=== PATIENT | female | born 1980 | race Caucasian/White ===

== ENCOUNTER 2018-12-21 17:13 | Inpatient (IN) | payer BC ==
[~2018-12-21] VITALS: Ht 144.8 cm; Wt 83.5 kg
[2018-12-21] MEDS ORDERED: METF-414 MT (17:19)
[2018-12-21] MEDS ORDERED: SODIUM CHLORIDE 0.9% 1,000 ML IV ONE (17:52)
[2018-12-21] MEDS ORDERED: KETOROLAC 30MG/ML VIAL IV STA (17:52)
[2018-12-21 18:15] LABS: CLARITY URINE CLEAR (CLEAR); COLOR URINE YELLOW (YELLOW); KETONES URINE NEGATIVE (NEGATIVE); LEUKOCYTE ESTERASE URINE NEGATIVE (NEGATIVE); NITRITE URINE NEGATIVE (NEGATIVE); OCCULT BLOOD URINE NEGATIVE (NEGATIVE); PROTEIN URINE NEGATIVE (NEGATIVE); SPECIFIC GRAVITY URINE 1.024 (1.005-1.030); UROBILINOGEN URINE 0.2 E.U./dL (0.2-1.0)
[2018-12-21 18:30] LABS: CHLORIDE 103 mEq/L (98-107)
[2018-12-21 18:31] LABS: BASOPHILS % 0.5 % (0.0-2.0); EOSINOPHILS % 0.9 % (0.0-5.0); HEMATOCRIT. 38.4 % (36.0-48.0); HEMOGLOBIN. 12.7 g/dL (12.0-16.0); LYMPHOCYTES % 21.4 % (20.0-50.0); MEAN CORPUSCULAR HEMOGLOBIN 25.4 pg (28.0-32.0); MEAN CORPUSCULAR VOLUME 77.2 fL (81.0-99.0); MEAN PLATELET VOLUME 8.1 fl (7.4-10.4); NEUTROPHILS % 71.2 % (40.0-76.0); PLATELET 324 x1000/uL (130-400); RED BLOOD CELL COUNT 4.98 mill/uL (4.2-5.4); RED CELL DISTRIBUTION WIDTH 14.7 % (11.6-14.6)
[2018-12-21 18:32] LABS: INR 0.9; PROTHROMBIN TIME 9.8 sec (9.6-11.0)
[2018-12-21] MEDS ORDERED: ASPIRIN 81MG TABLET PO ONE (19:30)
[2018-12-21 21:33] VITALS: BP 155/86
[2018-12-21] MEDS ORDERED: CLONIDINE 0.1MG TABLET PO PRN ×2 (22:15→22:30)
[2018-12-21] MEDS ORDERED: ONDANSETRON HCL 4MG/2ML INJ IV PRN ×2 (22:15→22:30)
[2018-12-21] MEDS ORDERED: MAGNESIUM/ALUMINUM HYDROXIDE/SIMETHICONE 30ML UDC PO PRN ×2 (22:15→22:30)
[2018-12-21] MEDS ORDERED: LORAZEPAM 2MG/ML CPJ IV PRN ×2 (22:15→22:30)
[2018-12-21] MEDS ORDERED: ENOXAPARIN 40MG/0.4ML SYR SUBCUT SCH ×2 (22:15→22:30)
[2018-12-21] MEDS ORDERED: HYDROCODONE/ACETAMINOPHEN 5/325MG TABLET PO PRN ×2 (22:15→22:30)
[2018-12-21] MEDS ORDERED: ACETAMINOPHEN 325MG TABLET PO PRN (22:30)
[2018-12-21] MEDS ORDERED: DEXTROSE 50% WATER 50ML SYRINGE IV PRN (23:00)
[2018-12-21] MEDS: LABETALOL HCL 200MG TABLET PO SCH (23:29)
[2018-12-21] MEDS: BLOOD SUGAR DIAGNOSTIC STRIP TEST SCH (23:30)
[2018-12-21] MEDS: THIAMINE HCL 100MG TABLET PO SCH (23:30)
[2018-12-21] MEDS: INSULIN LISPRO 100 UNITS/ML SUBCUT SCH (23:38)
[2018-12-22] VITALS: BP 146/87
[2018-12-22 04:00] VITALS: BP 130/73
[2018-12-22 07:44] LABS: CREATINE KINASE MB FRACTION 1.4 ng/mL (0.5-3.6)
[2018-12-22 07:45] LABS: METHADONE URINE SCREEN NEGATIVE (NEGATIVE)
[2018-12-22 07:46] LABS: *AMPHETAMINES SCREEN URINE NEGATIVE (NEGATIVE); *BARBITURATES SCREEN URINE NEGATIVE (NEGATIVE); *BENZODIAZEPINES SCREEN URINE NEGATIVE (NEGATIVE); *COCAINE SCREEN URINE NEGATIVE (NEGATIVE); CANNABINOID URINE SCREEN NEGATIVE (NEGATIVE); OPIATES URINE SCREEN NEGATIVE (NEGATIVE); PHENCYCLIDINE URINE SCREEN NEGATIVE (NEGATIVE)
[2018-12-22 08:00] VITALS: BP 150/84
[2018-12-22] MEDS ORDERED: FERROUS SULFATE 325MG TABLET PO SCH (09:00)
[2018-12-22] MEDS ORDERED: ASPIRIN 81MG EC TABLET PO SCH ×2 (09:00)
[2018-12-22] MEDS: LABETALOL HCL 200MG TABLET PO SCH (09:12)
[2018-12-22] MEDS: THIAMINE HCL 100MG TABLET PO SCH (09:13)
[2018-12-22] MEDS: INSULIN LISPRO 100 UNITS/ML SUBCUT SCH ×2 (09:18→13:27)
[2018-12-22] MEDS ORDERED: INSULIN GLARGINE UD 100 UNITS/ML SYR SUBCUT SCH (11:00)
[2018-12-22 12:00] VITALS: BP 139/81
[2018-12-22] MEDS: BLOOD SUGAR DIAGNOSTIC STRIP TEST SCH (12:40)
[2018-12-22] MEDS ORDERED: GLIM2TAB2 MT (13:40)
[2018-12-22 15:50] VITALS: BP 139/81
[2018-12-22 16:03] LABS: CREATINE KINASE MB FRACTION 1.1 ng/mL (0.5-3.6)
== END 2018-12-22 16:34 | disposition home or self-care (01) | DRG 392 ==
LOC: ER 17:13 → 7WST 19:30 → EDBEDREQTM 19:38 → EDBEDREQ 19:38 → ENRESERV 20:51
PROVIDERS: ADMIT Internal Medicine Nephrology; ATTEND Internal Medicine Nephrology
DX: K21.9 Gastro-esophageal reflux disease without esophagitis (principal); E11.9 Type 2 diabetes mellitus without complications; I10 Essential (primary) hypertension; E66.9 Obesity, unspecified; E78.1 Pure hyperglyceridemia; Z71.3 Dietary counseling and surveillance; Z68.39 Body mass index [BMI] 39.0-39.9, adult; Z79.84 Long term (current) use of oral hypoglycemic drugs
CPT/HCPCS: 36415; 71045; 80061; 80305; 81025; 82550; 82553; 82962; 83880; 84443; 84481; 84484; 93005; 93306; 96360; 96361; 99285; J1650; J1815; J1885; J7030